=== PATIENT | male | born 1960 | race Caucasian/White ===

== ENCOUNTER 2017-09-01 21:45 | Emergency (ER) | payer BC, OTHER ==
--- NOTE | 2017-09-01 22:52 | EDPHY ---
H & P Stated Complaint: 2 WEEKS OFF AND ON NAUSEA VOMITING DIARRHEA Time Seen by Provider: 09/01/17 22:31 HPI/ROS: HPI The patient presents with fatigue which she has experienced for the last 2 weeks. He says he feels this on a daily basis and becomes worse as the day progresses. He feels exhausted in the evenings it has been going to bed 2 hr earlier than usual. He has been sleeping about 11 hr at night and napping during the day. When he exerts himself, such as goes on a walk, he needs to nap afterwards. He does not have any dyspnea on exertion. He does report some low-grade nausea and lack of appetite which has led to a 4 lb weight loss over this time. He has had 1-2 loose stools daily which is not unusual for him because of a history of IBS. REVIEW OF SYSTEMS Constitutional: No fever, no chills. Eyes: No discharge. ENT: No sore throat. Cardiovascular: No chest pain, no palpitations. Respiratory: No cough, no shortness of breath. Gastrointestinal: No abdominal pain, no vomiting. Genitourinary: No hematuria. Musculoskeletal: No back pain. Skin: No rashes. Neurological: No headache. PMHx: History of Waldenstrom macroglobulinemia, diagnosed about 10 years ago, he has been asymptomatic with no history of anemia Soc Hx: Recently relocated here, lives with his PHYSICAL General Appearance: Alert, no distress Eyes: Pupils equal and round no pallor or injection ENT, Mouth: Mucous membranes moist Respiratory: There are no retractions, lungs are clear to auscultation Cardiovascular: Regular rate and rhythm Gastrointestinal: Abdomen is soft and non-tender, no masses, bowel sounds normal Neurological: A&O, moves all extremities Skin: Warm and dry, no rashes Musculoskeletal: Neck is supple non tender Extremities: symmetrical, full range of motion Psychiatric: Patient is oriented X 3, there is no agitation Source: Patient Exam Limitations: No limitations - Personal History Current Tetanus/Diphtheria Vaccine: Yes Current Tetanus Diphtheria and Acellular Pertussis (TDAP): Yes - Medical/Surgical History Hx Asthma: No Hx Chronic Respiratory Disease: No Hx Diabetes: No Hx Cardiac Disease: No Hx Renal Disease: No Hx Cirrhosis: No Hx Alcoholism: No Hx HIV/AIDS: No Hx Splenectomy or Spleen Trauma: No Other PMH: WALDSTROM MACROGLOBUINEMIA. - Social History Smoking Status: Never smoked Constitutional: Initial Vital Signs Temperature (C) 36.7 C 09/01/17 21:52 Heart Rate 75 09/01/17 21:52 Respiratory Rate 18 09/01/17 21:52 Blood Pressure 144/93 H 09/01/17 21:52 O2 Sat (%) 95 09/01/17 21:52 O2 Delivery Mode Room Air Allergies/Adverse Reactions: No Known Allergies Allergy (Unverified 09/01/17 21:54) Home Medications: Medication Instructions Recorded NK [No Known Home Meds] 09/01/17 Medical Decision Making Differential Diagnosis: 56-year-old male, history of Waldenstroms macroglobulinemia presents from home with 2 weeks of progressive fatigue, sleeping longer hours than usual and feeling generally exhausted. Differential diagnosis includes anemia, electrolyte disturbance, renal failure, heart failure, arrhythmia. In the emergency department, basic labs were checked. These were all unremarkable. The cause of the patient's fatigue is unclear at this point, however we have ruled out any life-threatening causes. I would like him to go home and follow up with his primary care doctor is plan to continue the workup for his symptoms. - Data Points Laboratory Results: Laboratory Results 09/01/17 22:41 09/01/17 22:41 Departure - Departure Disposition: Home, Routine, Self-Care Clinical Impression: Fatigue Qualifiers: Fatigue type: unspecified Qualified Code(s): R53.83 - Other fatigue Condition: Good Instructions: Fatigue (ED) Additional Instructions: You should follow up with your primary care doctor tomorrow as planned. Return to the emergency department if your worse in any way. Referrals: Danielle Bill MD [Primary Care Provider] - As per Instructions
[2017-09-01 22:55] LABS: PLATELET COUNT 361 10^3/uL (150-400)
[2017-09-02 00:16] VITALS: BP 122/68; PULSE 64; RESP 16; TEMP 98.2; O2SAT 94
== END 2017-09-02 00:16 | disposition home or self-care (01) ==
DX: R53.83 Other fatigue (principal)

== ENCOUNTER → 2017-09-17 | Outpatient (CLI) | payer OTHER ==
[~2017-09-17] MED LIST: IOPAMIDOL (ISOVUE 370) 100 ML BTL IV ONE; IOPAMIDOL (ISOVUE-300) 100 ML BTL ONE
== END ==
LOC: CIMAGING 10:23
PROVIDERS: ATTEND Family Medicine
DX: M79.3 Panniculitis, unspecified (principal); K58.9 Irritable bowel syndrome, unspecified; E83.52 Hypercalcemia
CPT/HCPCS: 74178-PO; Q9967

== ENCOUNTER 2018-04-19 10:32 | Day surgery (SDC) | payer OTHER ==
[2018-04-19] MEDS ORDERED: LR 1,000 ML IV ONE (10:58)
[2018-04-19] MEDS ORDERED: MIDAZOLAM 2 MG/2 ML VIAL IVP ONE (12:03)
--- NOTE | 2018-04-19 12:05 | PDANEPAE ---
ANE History of Present Illness 57 year old celiac dz ANE Past Medical History - Cardiovascular History Hx Hypertension: No Hx Arrhythmias: No Hx Chest Pain: No Hx Coronary Artery / Peripheral Vascular Disease: No Hx CHF / Valvular Disease: No Hx Palpitations: No - Pulmonary History Hx COPD: No Hx Asthma/Reactive Airway Disease: No Hx Recent Upper Respiratory Infection: No Hx Oxygen in Use at Home: No Hx Sleep Apnea: No Sleep Apnea Screening Result - Last Documented: Negative - Neurologic History Hx Cerebrovascular Accident: No Hx Seizures: No Hx Dementia: No - Endocrine History Hx Diabetes: No Endocrine History Comment: primary parathyroidism adenoma- has had 2 parathyroidectomies - Renal History Hx Renal Disorders: No - Liver History Hx Hepatic Disorders: No - Neurological & Psychiatric Hx Hx Neurological and Psychiatric Disorders: No - Cancer History Hx Cancer: Yes Cancer History Comment: waldenstrom's macroglobulinemia- b cell lymphoma - Congenital Disorder History Hx Congenital Disorders: No - GI History Hx Gastrointestinal Disorders: Yes Gastrointestinal History Comment: celiac disease possibly- gi issues for awhile - Other Health History Other Health History: none - Chronic Pain History Chronic Pain: No - Surgical History Prior Surgeries: 11/01/2017 parathyroidectomy. 2007 parathyroidectomy ANE Review of Systems Review of systems is: negative Review of Systems: - Exercise capacity METS (RN): 4 METS ANE Patient History - Allergies Allergies/Adverse Reactions: No Known Allergies Allergy (Verified 04/18/18 15:12) - Home Medications Home Medications: NK [No Known Home Meds] 09/01/17 [Last Taken Unknown] - NPO status NPO Status: no food or drink >8 hours NPO Since - Liquids (Date): 04/19/18 NPO Since - Liquids (Time): 08:00 NPO Since - Solids (Date): 04/18/18 NPO Since - Solids (Time): 08:00 - Anes Hx Anes Hx: no prior problems - Smoking Hx Smoking Status: Never smoked - Family Anes Hx Family Hx Anesthesia Complications: none ANE Labs/Vital Signs - Vital Signs Blood Pressure: 123/83 Heart Rate: 66 Respiratory Rate: 17 O2 Sat (%): 97 Height: 177.8 cm Weight: 70.307 kg ANE Physical Exam - Airway Neck exam: FROM Mallampati Score: Class 1 Mouth exam: normal dental/mouth exam - Pulmonary Pulmonary: no respiratory distress - Cardiovascular Cardiovascular: regular rate and rhythym - ASA Status ASA Status: II ( ) ANE Anesthesia Plan Anesthesia Plan: MAC
--- NOTE | 2018-04-19 12:05 | PDGENHP ---
History & Physical Chief Complaint: Waldenstroms macroglobulinemia History of Present Illness: 56 yo male with waldenstroms macroglobulinemia and celiac sprue. History of mesenteric panniculitis with abdominal lymphadenopathy. Pertinent Past, Social, Family History: Hyperparathyroidism. Waldenstroms. Celiac sprue. Chronic diarrhea. SH: . 3 children. No Tob or ETOH. FH: negative for colon cancer Relevant Physical Exam: NAD. NC/AT. Parathyroidectomy incisional scar. CTA B/ L. RRR without m/r/g. GI soft. NABS. NT/ND. No HSM. No bruit or ascites. Cardiorespiratory Assessment: ASA II. EGD/Colonoscopy with MAC
[2018-04-19] MEDS ORDERED: PROPOFOL 200 MG/20 ML VIAL ONE ×2 (12:16→12:36)
[2018-04-19] MEDS ORDERED: fentaNYL 100 MCG/2 ML INJ ONE (12:16)
--- NOTE | 2018-04-19 12:34 | GIREPORT ---
[facility] Surgical Services - Endoscopy Department Patient Name: Sheng Sinclair Procedure Date: 04/19/2018 12:20 PM Patient Type: Outpatient Attending MD/ ER Physician: Derek Nielsen MD Procedure: Upper GI endoscopy Indications: Suspected celiac disease, Positive celiac serologies Providers: Derek Nielsen MD Medicines: Propofol per Anesthesia Complications: No immediate complications. Description of Procedure: After obtaining informed consent, the endoscope was passed under direct vision. Throughout the procedure, the patient's blood pressure, pulse, and oxygen saturations were monitored continuously. The Endoscope was intro duced through the mouth, and advanced to the second part of duodenum. The [facility] er GI endoscopy was accomplished without difficulty. The patient tolerated th e procedure well. Findings: Mucosal changes including ringed esophagus, longitudinal furrows and wh ite plaques were found in the middle third of the esophagus and in the lowe r third of the esophagus. Biopsies were obtained from the proximal and di stal esophagus with cold forceps for histology of suspected eosinophilic esophagitis. A single 8 mm sessile polyp with no bleeding and no stigmata of recent bleeding was found in the gastric fundus. The polyp was removed with a piecemeal technique using a cold biopsy forceps. Resection and retrieva l were complete. The cardia, gastric body, gastric antrum and pylorus were normal. Biops ies were taken with a cold forceps for histology. The duodenal bulb, first portion of the duodenum and second portion of the duodenum were normal. Biopsies for histology were taken with a cold for ceps for evaluation of celiac disease. Estimated Blood Loss: Estimated blood loss was minimal. Post Op Diagnosis: - Esophageal mucosal changes consistent with eosinophilic esophagitis. Biopsied. - A single gastric polyp. Resected and retrieved. - Normal cardia, gastric body, antrum and pylorus. Biopsied. - Normal duodenal bulb, first portion of the duodenum and second portio n of the duodenum. Biopsied. Recommendation: - Await pathology results. - Gluten free diet. - Continue present medications. - Patient has a contact number available for emergencies. The signs and symptoms of potential delayed complications were discussed with the pat ient. Return to normal activities tomorrow. Written discharge instructions we re provided to the patient. - Thank you for allowing me to be involved in the care of your patient. Attending Participation: I personally performed the entire procedure without the assistance of a fellow, resident or surg ical religious assistant. Derek Nielsen MD Derek Nielsen MD 04/19/2018 12:34:17 PM This report has been signed electronicallyDavid MD Morales Number of Addenda: 0 Note Initiated On: 04/19/2018 12:20 PM [email or web address]}
--- NOTE | 2018-04-19 12:51 | GIREPORT ---
[facility] Surgical Services - Endoscopy Department Patient Name: Sheng Sinclair Procedure Date: 04/19/2018 12:32 PM Patient Type: Outpatient Attending MD/ ER Physician: Derek Nielsen MD Procedure: Colonoscopy Indications: Chronic diarrhea Providers: Derek Nielsen MD Medicines: Propofol per Anesthesia Complications: No immediate complications. Description of Procedure: After obtaining informed consent, the scope was passed under direct vis ion. Throughout the procedure, the patient's blood pressure, pulse, and oxyg en saturations were monitored continuously. The Colonoscope with irrigatio n channel was introduced through the anus and advanced to the terminal il eum. The colonoscopy was performed without difficulty. The patient tolerated the procedure well. The quality of the bowel preparation was excellent. The ileocecal valve, appendiceal orifice, and rectum were photographed. Findings: The digital rectal exam findings include non-thrombosed external hemorrhoids. Pertinent negatives include normal sphincter tone, no palp able rectal lesions and normal prostate (size, shape, and consistency). The terminal ileum appeared normal. Biopsies were taken with a cold for ceps for histology. The area from rectum to cecum appeared normal. Biopsies for histology w ere taken with a cold forceps from the right colon and left colon for evalu ation of microscopic colitis. Estimated Blood Loss: Estimated blood loss: none. Post Op Diagnosis: - Non-thrombosed external hemorrhoids found on digital rectal exam. - The examined portion of the ileum was normal. Biopsied. - The rectum to cecum is normal. Biopsied. Recommendation: - Await pathology results. - Repeat colonoscopy in 10 years for screening purposes. - Resume previous diet. - Continue present medications. - Patient has a contact number available for emergencies. The signs and symptoms of potential delayed complications were discussed with the pat ient. Return to normal activities tomorrow. Written discharge instructions we re provided to the patient. - Thank you for allowing me to be involved in the care of your patient. Attending Participation: I personally performed the entire procedure without the assistance of a fellow, resident or surg ical assistant track coach. Derek Nielsen MD Derek Nielsen MD 04/19/2018 12:51:09 PM This report has been signed electronicallyDavid MD Morales Number of Addenda: 0 Note Initiated On: 04/19/2018 12:32 PM Total Procedure Duration Time 0 hours 12 minutes 40 seconds [email or web address]
[2018-04-19] MEDS ORDERED: ONDANSETRON 4 MG/2 ML VIAL IVP PRN (13:00)
[2018-04-19] MEDS ORDERED: DEXAMETHASONE 4 MG/ML VIAL IVP PRN (13:00)
[2018-04-19] MEDS ORDERED: NALOXONE HCL 0.4 MG/ML INJ IVP PRN (13:00)
[2018-04-19] MEDS ORDERED: fentaNYL 100 MCG/2 ML INJ IVP PRN (13:00)
--- NOTE | 2018-04-19 13:01 | POSTANESTH ---
Post Anesthetic Evaluation Cardiovascular Status: Normal, Stable, Tx Over/Under Hydration Level of Consciousness/Mental Status: Can Participate in Eval Pain Control: Adequate, Prn Tx Ordered Nausea/Vomiting Control: Adequate, Prn Tx Ordered Complications Possibly Related to Anesthesia: None Noted
[2018-04-19 14:19] VITALS: BP 120/78
== END 2018-04-19 14:29 | disposition home or self-care (01) ==
LOC: FSGY 10:32
PROVIDERS: ATTEND Internal Medicine Gastroenterology
PROC: 0DB68ZX Excision of Stomach, Via Natural or Artificial Opening Endoscopic, Diagnostic (ICD-10-PCS; principal; 2018-04-19 12:00)
PROC: 0DBE8ZX Excision of Large Intestine, Via Natural or Artificial Opening Endoscopic, Diagnostic (ICD-10-PCS; principal; 2018-04-19 12:00)
PROC: 0DB98ZX Excision of Duodenum, Via Natural or Artificial Opening Endoscopic, Diagnostic (ICD-10-PCS; principal; 2018-04-19 12:00)
PROC: 0DB58ZX Excision of Esophagus, Via Natural or Artificial Opening Endoscopic, Diagnostic (ICD-10-PCS; principal; 2018-04-19 12:00)
PROC: 0DBB8ZX Excision of Ileum, Via Natural or Artificial Opening Endoscopic, Diagnostic (ICD-10-PCS; principal; 2018-04-19 12:00)
DX: D12.2 Benign neoplasm of ascending colon (principal); K63.5 Polyp of colon; R19.7 Diarrhea, unspecified; C88.0 Waldenstrom macroglobulinemia
CPT/HCPCS: J2250; J2704; J3010